=== PATIENT | male | born 1995 | race Caucasian/White ===

== ENCOUNTER 2023-09-07 16:51 | Emergency (ER) | payer OTHER, SELFPAY ==
[2023-09-07 16:51] VITALS: BP 154/91
--- NOTE | 2023-09-07 17:48 | ED.MUSCINJ ---
HPI-Injury
<Davidson Hernandez DO, Resident - Last Filed: 09/07/23 20:22>
General
Chief Complaint: Musculo-Skeletal Complaint
Source: patient
Time Seen by Provider: 09/07/23 17:29
History of Present Illness-Injury
Is this injury a work related problem?: No
Is pt an associate of [facility]/[place]?: No
Initial Injury comments:
Pt is a 28 YO M with no PMH presenting to the ED after a collision and fall during softball today around 12 PM. He reports hitting the back of his head and was told when he fell his right foot hit the other player in the head. He reports some
dizziness and nausea at time of injury, ongoing mental fogginess, significant pain with flexion/extension and palpation of right foot. Pt is not on medications or blood thinners.
Past History
<Davidson Hernandez DO, Resident - Last Filed: 09/07/23 20:22>
Past History
ED Past Medical History: Other
ED Past Surgical History: Appendectomy and Orthopedic
Patient has exhibited threatening behavior?: No
Social History
Tobacco: Vaping
Alcohol: Occasional
Drug: None
Employment: Employed
Review of Systems
<Davidson Hernandez DO, Resident - Last Filed: 09/07/23 20:22>
Review of Systems
Constitutional: Reports no symptoms
EENT: Reports no symptoms
Respiratory: Reports no symptoms
Cardiac: Reports no symptoms
ABD/GI: Reports no symptoms
Musculoskeletal: Reports other (right foot pain)
Skin: Reports no symptoms
Neurological: Reports dizzy and headache
Musculoskeletal Injury Exam
<Davidson Hernandez DO, Resident - Last Filed: 09/07/23 20:22>
Musculoskeletal Injury Exam
Right Foot:
Pain with Movement?: Severe
Tender to palpation?: Severe
Soft tissue swelling?: Moderate
External deformity and angulation?: None
Crepitus with movement?: No
Malalignment/deformity?: No
Range of motion: Limited
Phy Exam
<Davidson Hernandez DO, Resident - Last Filed: 09/07/23 20:22>
General Physical Exam
General Presentation: well appearing
General age: appears stated age
General Habitus: normal
General Mental: alert
General Hydration: appears well hydrated
Eye Exam
Eye Exam: cornea clear, conjunctiva normal and visual roa normal
Cardiovascular Exam
Cardiovascular Exam: regular rate/rhythm, no edema, no gallop, no JVD, no murmur and normal peripheral pulses
Pulmonary Exam
Pulmonary Exam: lungs clear, no respiratory distress, no rales, chest non tender, no crackles, no rhonchi, no stridor, no wheezing and no cough
Neurological Exam
Neurological Exam: alert, oriented x3, CN II-XII intact, no motor deficits and no sensory deficits
Musculoskeletal Exam
Musculoskeletal Exam: other (pain and decreased ROM right foot)
Injury Course
<Davidson Hernandez DO, Resident - Last Filed: 09/07/23 20:22>
Orders/Labs/Results
Orders:
Orders
09/07/23 17:55
CT Head W/o Iv Contrast Urgent
Comment:
Reason For Exam: fall
Ibuprofen [Motrin] 600 mg PO NOW STA
Foot, Right 3 View [CR Foot - Right Min 3 Views] Urgent
Comment:
Reason For Exam: fall
09/07/23 20:[address] Non Medication Order As Directed
Physician Order: Please give patient a post-op shoe for 5th metatarsal fracture.
Above order entered?: Yes
<Amandeep Givens DO - Last Filed: 09/07/23 21:02>
Orders/Labs/Results
Orders:
Orders
09/07/23 17:55
CT Head W/o Iv Contrast Urgent
Comment:
Reason For Exam: fall
Ibuprofen [Motrin] 600 mg PO NOW STA
Foot, Right 3 View [CR Foot - Right Min 3 Views] Urgent
Comment:
Reason For Exam: fall
09/07/23 20:[address] Non Medication Order As Directed
Physician Order: Please give patient a post-op shoe for 5th metatarsal fracture.
Above order entered?: Yes
<Davidson Hernandez DO, Resident - Last Filed: 09/07/23 20:22>
MDM/Problems Addressed
Differential Diagnosis Includes:
concussion, foot fracture
MDM/Problems Addressed:
Pt is a 28 YO M presenting to ED after a collision and fall at softball. No LOC but reports dizziness, mental fogginess, pain in right foot, and pain in back of head. Patient is stable. CT head and XRay R foot ordered. Pain managed with Ibuprofen.
CT head negative. Xray shows transverse fracture of 5th metatarsal with mild displacement.
Chronic conditions affecting care:
NA
Acute Exacerbation and/or Progression of Chronic Illness:
NA
<Davidson Hernandez DO, Resident - Last Filed: 09/07/23 20:22>
*Radiology
Radiology exam reviewed: radiology read reviewed (CT head negative. Xray shows 5th MT transverse fracture)
*Pulse Oximetry
Patient hypoxic: no
*EKG
Interpreted by ED Provider?: NA
*Social Sciences Lecturer Interpretation
Rate: Social Sciences Lecturer- N/A
*Critical Care Note
Total Time (30-74mins, 75-104mins- exclusive of procedures): Not Applicable
ED Attending Note
<Davidson Hernandez DO, Resident - Last Filed: 09/07/23 20:22>
-
Portions of this chart may have been created with voice recognition software.� Occasional wrong word or��sound alike� substitutions may have occurred due to the inherent limitations of voice recognition software.
<Amandeep Givens, DO - Last Filed: 09/07/23 21:02>
ED Attending Note
Patient seen and examined by attending physician: Yes
I performed a history and physical exam of patient and discussed management with resident, I reviewed resident's note and agree with documented findings and plan of care.: Yes
ED Attending Note:
I have reviewed and agree with history and treatment plan by Davidson Hernandez. My exam revealed
Physical Exam
General: no apparent distress, not acutely ill
Neck: supple. no meningeal signs. normal posterior pharynx
Heart: s1/s2 regular rate and rhythm, no murmur. equal radial
pulses.
HEENT: Pupils equal round reactive to light, EOMI
Lungs: no acute respiratory distress. clear bilaterally
Abdomen: normal bowel sounds. not tender. no CVAT
Neuro: alert and oriented. no focal neurological deficits cranial nerves II through XII intact
Skin: no rash
Psychiatric: well kept. interactive and cooperative
Extremities: no edema. no calf tenderness. negative homans. good distal pulses, tender to palpation right lateral foot
28-year-old male with mild concussion, no signs of intracranial hemorrhage. No neurologic deficits. Right fifth metatarsal fracture. Stable for discharge and follow-up with podiatry.
Discharge Plan
Departure
Patient Disposition: Home (Routine Discharge)
Date of Disposition: 09/07/23
Time of Disposition: 19:52
Patient with high blood pressure during this ER visit?: Yes
Condition: Good
Discharge Problem:
Metatarsal bone fracture, Concussion
Instructions: BLOOD PRESSURE, Foot Fracture
Prescriptions:
No Action
cholecalciferol (vitamin D3) [Vitamin D3] 5,000 UNIT tablet
5,000 unit PO DAILY
Referrals:
Karina Finnegan CRNP [Family Provider] -
Shonda Wynn DPM [Active] - Call in 1-3 days for appt
Stand Alone Forms: Return to Work
Interventions
Interventions:
*Risk Screen - Suicide Last Done: 09/07/23 20:23
*General Assessment Last Done: 09/07/23 20:23
*Neglect/Abuse Screening Last Done: 09/07/23 20:23
ED- Fall Risk Assessment Last Done: 09/07/23 20:23
*ED COVID-19 Vaccine History Last Done: 09/07/23 20:23
*Nursing Disposition Last Done: 09/07/23 20:23
ED-Musculoskeletal Assessment Last Done: 09/07/23 18:00
Discharge Date and Time
Discharge Date/Time: 09/07/23 20:23
Print Language: LITHUANIAN
[2023-09-07] MEDS: MOTRIN 600 MG PO (18:28)
[2023-09-07 20:12] VITALS: BP 124/71
== END 2023-09-07 20:23 | disposition home or self-care (01) ==
LOC: EMR 16:51
PROVIDERS: EMERGENCY PHYSICIAN Emergency Medicine; FAMILY PHYSICIAN Family Medicine
DX: S06.0XAA Concussion with loss of consciousness status unknown, initial encounter (principal); S92.351A Displaced fracture of fifth metatarsal bone, right foot, initial encounter for closed fracture; W03.XXXA Other fall on same level due to collision with another person, initial encounter
CPT/HCPCS: 99284; 70450; 73630

== ENCOUNTER 2023-10-15 09:01 | Emergency (ER) | payer OTHER, SELFPAY ==
[2023-10-15 09:08] VITALS: BP 153/97
--- NOTE | 2023-10-15 09:41 | ED.GENMED ---
History of Present Illness
General
Chief Complaint: Musculo-Skeletal Complaint
Source: patient
Exam Limitations: none
Time Seen by Provider: 10/15/23 09:19
Nursing documentation reviewed up to this point in time: agreed with
History of Present Illness
History of Present Illness:
48-year-old male with past medical history of ADHD, OCD presenting to the emergency department today with concerns of right-sided foot discomfort after twisting his foot on a baseball running while playing kickball yesterday has been able to walk
but has had significant discomfort and swelling. Denies additional injuries.
Past History
Past History
ED Past Medical History: Other
ED Past Surgical History: Appendectomy and Orthopedic
Patient has exhibited threatening behavior?: No
Social History
Tobacco: Vaping
Alcohol: Occasional
Drug: None
Employment: Employed
Review of Systems
Review of Systems
Allergies reviewed?: Yes
All Other Systems: ROS reviewed and negative except as documented in HPI and ROS
Phy Exam
Physical Exam
Physical Exam:
GENERAL: Alert , in no apparent distress
EYE: pupils equal and reactive
NECK: Supple, no significant adenopathy.
ENT: o/p clr, mmm.
CARDIAC: Regular rate and rhythm .
LUNGS: Clear breath sounds bilaterally, no acute respiratory distress, no wheezes/rales/rhonchi
ABDOMEN: Soft, without focal tenderness, no r/g, no cvat
NEUROLOGICAL: Alert and oriented, no focal neuro deficits
SKIN: Warm and dry, skin intact.
MUSCULOSKELETAL: Swelling tenderness palpation to the right midfoot on the lateral aspect. Well perfused.
PSYCH: Normal and appropriate interaction.
Course
Orders/Labs/Results
Orders:
Orders
10/15/23 09:09
Foot, Right 3 View [CR Foot - Right Min 3 Views] Urgent
Comment:
Reason For Exam: pain/swelling
10/15/23 09:41
Navid Wrap Right-Treatment ONCE
Crutches-Treatment ONCE
Vital Signs
Initial and Last Documented VS:
Initial Vital Signs
Temp Pulse Resp BP Pulse Ox
97.9 F 92 17 153/97 100
10/15/23 09:08 10/15/23 09:08 10/15/23 09:08 10/15/23 09:08 10/15/23 09:08
Last Documented Vital Signs
Temp Pulse Resp BP Pulse Ox
97.9 F 92 17 153/97 100
10/15/23 09:08 10/15/23 09:08 10/15/23 09:08 10/15/23 09:08 10/15/23 09:08
MDM/Problems Addressed
MDM/Problems Addressed:
28-year-old male presenting to the emergency department today with concerns of right-sided foot discomfort after twisting his foot yesterday while playing kickball. He is swelling discomfort to the area but has been able to walk. Physical
examination normal cap refill normal pulses tenderness palpation to the right lateral midfoot x-ray without signs of fracture patient with likely sprain patient was given protective Navid wrap crutches for short period of time and otherwise will
follow-up closely as an outpatient return precautions given.
*Critical Care Note
Total Time (30-74mins, 75-104mins- exclusive of procedures): Not Applicable
ED Attending Note
-
Portions of this chart may have been created with voice recognition software.� Occasional wrong word or��sound alike� substitutions may have occurred due to the inherent limitations of voice recognition software.
Discharge Plan
Departure
Patient Disposition: Home (Routine Discharge)
Date of Disposition: 10/15/23
Time of Disposition: 09:41
Patient with high blood pressure during this ER visit?: No
Condition: Good
Covid-19: Not Applicable
Discharge Problem:
Foot sprain
Instructions: Foot Sprain ED
Prescriptions:
No Action
cholecalciferol (vitamin D3) [Vitamin D3] 5,000 UNIT tablet
5,000 unit PO DAILY
Referrals:
Karina Finnegan CRNP [Family Provider] -
Jw Hutchinson DPM [Active] - Follow up in 1 week
Activity Restrictions/Additional Instructions:
You came to the emergency department today with concerns of foot pain. Your x-ray did not show any acute fracture. Likely is a sprain. Please rest ice compress and elevate and follow-up with the foot doctor as needed. Return to the emergency
department for any worsening, new or concerning symptoms.
Discharge Date and Time
Print Language: WOLOF
== END 2023-10-15 10:05 | disposition home or self-care (01) ==
LOC: EMR 09:01
PROVIDERS: EMERGENCY PHYSICIAN Emergency Medicine; FAMILY PHYSICIAN Family Medicine
DX: S93.601A Unspecified sprain of right foot, initial encounter (principal); X58.XXXA Exposure to other specified factors, initial encounter; R22.41 Localized swelling, mass and lump, right lower limb; F90.9 Attention-deficit hyperactivity disorder, unspecified type; F42.9 Obsessive-compulsive disorder, unspecified; F17.290 Nicotine dependence, other tobacco product, uncomplicated; Z90.49 Acquired absence of other specified parts of digestive tract
CPT/HCPCS: 99283; 73630